=== PATIENT | male | born 1990 | race Two or more races ===

== ENCOUNTER 2025-01-06 01:18 | Emergency (ER) | payer MEDICAID, OTHER ==
[~2025-01-06] VITALS: Ht 182.9 cm; Wt 99.8 kg
[2025-01-06] MEDS ORDERED: PANTOPRAZOLE SODIUM 40 MG TABLET.DR PO ONE (01:35)
[2025-01-06] MEDS ORDERED: DICYCLOMINE HCL 20 MG TABLET ONE (01:35)
[2025-01-06] MEDS ORDERED: ONDANSETRON HCL 4 MG TABLET ONE (01:36)
[2025-01-06] MEDS: DICYCLOMINE HCL 20 MG TABLET PO STA (01:39)
[2025-01-06] MEDS: PANTOPRAZOLE SODIUM 40 MG TABLET.DR PO ONE (01:40)
[2025-01-06] MEDS: ONDANSETRON HCL 4 MG TABLET PO ONE (01:40)
[2025-01-06 01:54] VITALS: BP 17/72
[2025-01-06 02:02] LABS: PLATELET COUNT (AUTO) 236 K/uL (152-348); RED BLOOD CELL COUNT(AUTO) 4.69 MIL/uL (4.06-5.63); RED CELL DISTRIBUTION WIDTH 12.5 % (12.1-16.2); WHITE BLOOD COUNT (AUTO) 13.0 K/uL (3.6-10.2)
[2025-01-06 02:12] LABS: CREATININE 1.0 mg/dL (0.6-1.3); SODIUM SERUM 142.0 mmol/L (136-145); UREA NITROGEN, BLOOD 18.0 mg/dL (7-18)
[2025-01-06 02:19] LABS: ASPARTATE AMINOTRANSFERASE 16.0 U/L (15-37); TOTAL PROTEIN, SERUM 7.4 g/dL (6.4-8.2)
[2025-01-06] MEDS ORDERED: PANT40TA2 PO (02:37)
[2025-01-06] MEDS ORDERED: DICY10CA13 PO (02:37)
[2025-01-06] MEDS ORDERED: ONDA4TAB5 PO (02:37)
[2025-01-06 02:42] VITALS: BP 17/72; O2SAT 98
== END 2025-01-06 02:42 | disposition home or self-care (01) ==
LOC: ER 01:37
DX: K29.70 Gastritis, unspecified, without bleeding (principal); Z79.899 Other long term (current) drug therapy
CPT/HCPCS: 36415; 83690; 83735; 85025; 86140; A4606; A4663; Q0162